=== PATIENT | female | born 1990 | race Caucasian/White ===

== ENCOUNTER 2016-09-26 16:31 | Inpatient (IN) ==
[2016-09-26] MEDS ORDERED: ONDANSETRON 4 MG/2 ML VIAL IV PRN (16:48)
[2016-09-26] MEDS ORDERED: BUTORPHANOL 2 MG/ML VIAL IV PRN (16:48)
[2016-09-26] MEDS: LACTATED RINGERS 1,000 ML IV SCH (16:49)
[2016-09-26 17:45] LABS: Basophils % 0.2 % (0.0-0.8); Eosinophils # 0.2 10*3/uL (0.0-0.87); Eosinophils % 1.9 % (0.00-10.9); Hematocrit 36.4 VOL% (35.7-47.0); Hemoglobin 12.3 GM/DL (12.0-16.0); Immature Granulocytes % 0.7 %; Immature Granulocytes Absolute 0.07 #; Lymphocytes % 18.9 % (21.3-54.2); Mean Corpuscular HGB Conc 33.8 GM/DL (32-36); Mean Corpuscular Hemoglobin 31 PG (27-34); Mean Corpuscular Volume 91.2 FL (87-102); Mean Platelet Volume 10.8 FL (9.6-12.0); Monocytes # 0.9 10*3/uL (0.11-0.8); Monocytes % 8.2 % (1.7-12.7); Neutrophils # 7.4 10*3/uL (1.4-7.4); Neutrophils % 70.1 % (38.7-73.9); Platelet Count 222 T/CUMM (130-400); Red Blood Count 3.99 MC/CUMM (3.8-5.5); Red Cell Distribution Width 12.8 % (9.3-17.3); White Blood Count 10.6 T/CUMM (4-12)
[2016-09-26] MEDS: OXYTOCIN/LR 20 UNIT/1,000 ML BAG IV SCH (18:43)
[2016-09-27] MEDS: MEPERIDINE 50 MG/1 ML VIAL IV PRN ×2 (09:13→11:05)
[2016-09-27] MEDS ORDERED: LIDOCAINE 1% 50 ML VIAL ONE ×2 (11:30→12:01)
[2016-09-27] MEDS ORDERED: miSOPROStol 200 MCG TABLET ONE (11:30)
[2016-09-27] MEDS: OXYTOCIN/LR 20 UNIT/1,000 ML BAG IV SCH (12:37)
[2016-09-27] MEDS ORDERED: oxyCODONE/ACETAMINOPHEN 5-325 MG TABLET ONE (16:51)
[2016-09-27] MEDS ORDERED: IBUPROFEN 800 MG TABLET ONE (16:51)
[2016-09-27] MEDS ORDERED: oxyCODONE/ACETAMINOPHEN 5-325 MG TABLET PO PRN (17:00)
[2016-09-27] MEDS: IBUPROFEN 800 MG TABLET PO PRN (17:00)
--- NOTE | 2016-09-27 18:48 | History and Physical Update ---
History and Physical Update - Dictation Physical: refer to scanned H&P - Physical Exam Mental Status: alert and oriented Heart: regular rate and rhythm Lung: clear to auscultation Abdomen: within normal limits Vitals: within normal limits History and Physical Changes: Pt presented to L&D with SROM at 1500 on 09/26/16. She wished attempt. Documented LTCS with first delivery. Pt aware of risks. I think it is reasonable that she attempt with her restriction of weight gain this to about 30 # as compared to 45 # weight gain with first baby.
[2016-09-27] MEDS: DOCUSATE SODIUM 100 MG CAPSULE PO SCH (20:45)
[2016-09-28] MEDS: IBUPROFEN 800 MG TABLET PO PRN ×2 (04:20→15:12)
[2016-09-28 05:36] LABS: Basophils % 0.2 % (0.0-0.8); Eosinophils # 0.2 10*3/uL (0.0-0.87); Eosinophils % 1.7 % (0.00-10.9); Hematocrit 31.4 VOL% (35.7-47.0); Hemoglobin 10.5 GM/DL (12.0-16.0); Immature Granulocytes % 0.7 %; Immature Granulocytes Absolute 0.07 #; Lymphocytes # 1.7 10*3/uL (1.4-4.0); Lymphocytes % 16.6 % (21.3-54.2); Mean Corpuscular HGB Conc 33.4 GM/DL (32-36); Mean Corpuscular Hemoglobin 30 PG (27-34); Mean Corpuscular Volume 90.5 FL (87-102); Mean Platelet Volume 11.1 FL (9.6-12.0); Monocytes # 0.9 10*3/uL (0.11-0.8); Monocytes % 8.2 % (1.7-12.7); Neutrophils # 7.6 10*3/uL (1.4-7.4); Neutrophils % 72.6 % (38.7-73.9); Platelet Count 181 T/CUMM (130-400); Red Blood Count 3.47 MC/CUMM (3.8-5.5); Red Cell Distribution Width 13.2 % (9.3-17.3); White Blood Count 10.5 T/CUMM (4-12)
--- NOTE | 2016-09-28 08:41 | OB/GYN Progress Note ---
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 Interval history: PPD#1 Doing well Exam BAG [employer] SEWER - Constitutional Vitals: Vital Signs Temp Pulse Resp BP Pulse Ox 09/28/16 07:26 97.7 F 75 20 111/64 97 09/28/16 04:20 97.5 F L 68 16 113/63 98 09/28/16 00:15 97.3 F L 65 16 95/53 96 09/27/16 20:05 97.2 F L 67 20 108/59 96 09/27/16 16:00 98.5 F 69 20 121/62 98 09/27/16 12:00 97.4 F L 90 20 95/48 09/27/16 10:00 99.4 F General appearance: normal weight, no acute distress - Head Head exam: Present: normal inspection, normocephalic - Eye Eye exam: Present: EOMI - Respiratory Respiratory exam: Present: clear to auscultation bilaterally - Cardiovascular Cardiovascular exam: Present: regular rate and rhythm - GI/Abdominal GI/Abdominal exam: Present: soft (fundus firm, nontender) - Extremities Exam Extremities exam: Present: normal inspection - Neurological Exam Neurological exam: Present: alert, oriented X3 - Psychiatric Psychiatric exam: Present: normal affect, normal mood - Skin Skin exam: Present: normal color, warm Results - Labs CBC & BMP: 09/28/16 04:58 Lab Results: I have reviewed the past 24 hour labs
[2016-09-28] MEDS: DOCUSATE SODIUM 100 MG CAPSULE PO SCH ×2 (09:30→20:05)
--- NOTE | 2016-09-28 12:23 | Pathology Report from [facility] ---
ACCESSION # : [id number] PATIENT NAME : Evelia Johnson ORDERING DR : MELISSA WILLSON CLINICAL HX: @ 37 wks gestation, SROM- POST-OP DX: Same SPECIMEN INFO: Placenta GROSS DESCRIPTION: Received fresh labeled "EVELIA JOHNSON" is a 559 gm placenta received in a few pieces measuring 16.0 x 17.5 x 3.0 cm collectively. The membranes are pink caal and translucent. The umbilical cord measures 39.0 cm, contains three vessels and is centrally inserted. The surface is blue carmen and circumarginate. The maternal surface displays no gross abnormalities upon sectioning. Sections submitted A- membranes and cord, B- and maternal surfaces. DIAGNOSIS FOR EVELIA JOHNSON: PLACENTA, MEMBRANES, UMBILICAL CORD: Focal placental infarction, mild intervillous blood. Tri-vessel umbilical cord. Membranes with focal chronic inflammation and attached blood. SERVICE DATE: 09/27/2016 REPORT DATE: 09/28/2016 PATHOLOGIST: Shannon Bhardwaj
[2016-09-28] MEDS: OXYTOCIN/LR 20 UNIT/1,000 ML BAG IV SCH ×2 (20:05→20:15)
[2016-09-28] MEDS: LACTATED RINGERS 1,000 ML IV SCH ×2 (20:43→20:44)
[2016-09-29] MEDS: IBUPROFEN 800 MG TABLET PO PRN ×2 (02:30→17:00)
[2016-09-29] MEDS: LACTATED RINGERS 1,000 ML IV SCH (06:19)
[2016-09-29] MEDS: DOCUSATE SODIUM 100 MG CAPSULE PO SCH ×2 (10:14→21:30)
[2016-09-30 07:17] VITALS: BP 106/55
--- NOTE | 2016-09-30 09:56 | OB/GYN Progress Note ---
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 Baby is having apneic episodes and evaluation is in progress for this. 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 [employer]IVER - Constitutional Vitals: Vital Signs Temp Pulse Resp BP Pulse Ox 09/30/16 07:17 97.9 F 67 20 106/55 99 09/30/16 04:00 97.8 F 73 20 114/69 99 09/30/16 02:00 18 09/29/16 23:52 97.6 F 66 18 104/64 99 09/29/16 20:00 97.8 F 75 20 114/68 99 09/29/16 16:00 98.2 F 65 20 131/55 100 09/29/16 12:00 97.2 F L 70 19 114/69 100 General appearance: normal weight, mild distress (with situation) - Head Head exam: Present: normal inspection, normocephalic - Eye Eye exam: Present: EOMI - Respiratory Respiratory exam: Present: clear to auscultation bilaterally - Cardiovascular Cardiovascular exam: Present: regular rate and rhythm - GI/Abdominal GI/Abdominal exam: Present: soft (fundus firm, nontender) - Extremities Exam Extremities exam: Present: normal inspection - Neurological Exam Neurological exam: Present: alert, oriented X3 - Psychiatric Psychiatric exam: Present: normal affect, normal mood - Skin Skin exam: Present: normal color, warm Results - Labs CBC & BMP: 09/28/16 04:58 Lab Results: I have reviewed the past 24 hour labs
[2016-09-30] MEDS: DOCUSATE SODIUM 100 MG CAPSULE PO SCH (09:57)
--- NOTE | 2016-09-30 09:58 | Discharge Summary ---
Hospital Course - Hospital Course Hospital Course: Pt admitted with SROM at 37 wks . Pt with hx of prev C/S and she wished to attempt with documented hx of LTCS. Slow Pitocin augmentation was done. Pt delivered easily on 09/27/16 without complications. Baby had several apneic episodes and was kept longer for evaluation. Pt is and we felt it best to keep the pt an extra day for benefits for her and her baby in this stressful situation. Diagnosis - Discharge Diagnosis (1) Vaginal after delivery Status: Acute Discharge Plan - Discharge Data Disposition: Disch To Home/Self Care Condition at Discharge: Stable Discharge Diet: regular diet Activity: other (pelvic rest x 6 wks) Hygiene: may shower Weight Bearing at Discharge: full weight bearing Driving: not for (1 wk) Contact your physician if you experience:: fever over 101, Difficulty voiding, Redness or swelling, Nausea/Vomiting, Shortness of breath, Bleeding, pain uncontrolled by pain medications - Discharge Medications New Ibuprofen Tab [Motrin Tab] 800 mg PO Q6H PRN #30 tablet PRN Reason: Pain oxyCODONE/ACETAMINOPHEN 5-325 [Percocet 5-325] 1 tablet PO Q4H PRN #20 tablet PRN Reason: Pain Moderate (4-7) No Action Vits #90/Iron Fum/FA [ Formula Tablet] 1 tablet PO DAILY - Follow Up or Referral Follow Up: Alina Salazar DO [Primary Care Provider] - (6 wks) - Forms/Instructions Exam - Constitutional Vitals: Period Temp Pulse Resp BP Sys/Esposito Pulse Ox Last 24 Hr 97.2 F-98.2 F 65-75 18-20 104-131/55-69 99-100 General appearance: normal weight, no acute distress - Head Head exam: Present: normal inspection, normocephalic - Eye Eye exam: Present: EOMI - Respiratory Respiratory exam: Present: clear to auscultation bilaterally - Cardiovascular Cardiovascular exam: Present: regular rate and rhythm - GI/Abdominal GI/Abdominal exam: Present: soft (fundus firm, nontender) - Extremities Exam Extremities exam: Present: normal inspection - Neurological Exam Neurological exam: Present: alert, oriented X3 - Psychiatric Psychiatric exam: Present: normal affect, normal mood - Skin Skin exam: Present: normal color, warm DS: Provider Date of admission: 09/26/16 16:31 Primary care physician: Alina Salazar DO Attending physician on admission: Alina Salazar DO Consults: 09/26/16 16:48 Consult to Anesthesiology [CONS] Routine Consulting Provider: Reason for Anesthesiology: Epidural Consult Comment: Epidural for pain managment Discharging clinician: Alina Salazar DO Expected date of discharge: 09/30/16
== END 2016-09-30 13:20 | disposition home or self-care (01) | DRG 775 ==
LOC: N.LDOUT 16:31 → EDSTATUS 16:31 → N.LD 16:31 → N.OB 09-27 16:07
PROVIDERS: ADMIT Obstetrics & Gynecology; ATTEND Obstetrics & Gynecology

== ENCOUNTER 2019-03-19 06:15 | Inpatient (IN) ==
[2019-03-19] MEDS ORDERED: BUTORPHANOL 2 MG/ML VIAL IV PRN (07:10)
[2019-03-19] MEDS ORDERED: ONDANSETRON 4 MG/2 ML VIAL IV PRN (07:10)
[2019-03-19] MEDS ORDERED: MEPERIDINE 50 MG/1 ML VIAL IV PRN (07:10)
[2019-03-19 07:26] LABS: Basophils % 0.3 % (0.0-0.8); Eosinophils # 0.2 10*3/uL (0.0-0.87); Eosinophils % 2.3 % (0.00-10.9); Hematocrit 37.5 VOL% (35.7-47.0); Hemoglobin 12.5 GM/DL (12.0-16.0); Immature Granulocytes % 0.6 %; Immature Granulocytes Absolute 0.05 #; Lymphocytes # 1.6 10*3/uL (1.4-4.0); Lymphocytes % 18.7 % (21.3-54.2); Mean Corpuscular HGB Conc 33.3 GM/DL (32-36); Mean Corpuscular Volume 89.9 FL (87-102); Mean Platelet Volume 11.6 FL (9.6-12.0); Monocytes % 8.3 % (1.7-12.7); Neutrophils % 69.8 % (38.7-73.9); Platelet Count 224 T/CUMM (130-400); Red Blood Count 4.17 MC/CUMM (3.8-5.5); White Blood Count 8.7 T/CUMM (4-12)
[2019-03-19] MEDS ORDERED: LACTATED RINGERS 1,000 ML IV SCH (07:30)
[2019-03-19 07:55] LABS: Alanine Aminotransferase 29 U/L (13-56); Albumin 2.5 G/DL (3.4-5.0); Alkaline Phosphatase 176 U/L (45-117); Aspartate Amino Transferase 22 U/L (0-37); Bilirubin,Total < 0.39 MG/DL (0.2-1.0); Blood Urea Nitrogen 8 MG/DL (7-18); Calcium 8.4 MG/DL (8.5-10.1); Glucose 67 MG/DL (74-106); Osmolality,Calculated 272.5 MOS/KG (273-304)
[2019-03-19] MEDS: OXYTOCIN/LR 20 UNIT/1,000 ML BAG IV SCH ×2 (08:34→17:58)
[2019-03-19] MEDS ORDERED: miSOPROStol 200 MCG TABLET ONE (13:00)
[2019-03-19] MEDS ORDERED: LIDOCAINE 1% 50 ML VIAL ONE (13:01)
[2019-03-19] MEDS ORDERED: METHYLERGONOVINE 0.2 MG/1 ML AMP ONE (13:01)
[2019-03-19] MEDS ORDERED: CARBOPROST TROMETHAMINE 250 MCG/ML AMP IM ONE (13:01)
[2019-03-19] MEDS ORDERED: CITRIC ACID/SODIUM CITRATE 30 ML UDCUP PO ONE (13:26)
[2019-03-19] MEDS ORDERED: ceFAZolin 2,000 MG in PREMIX 1 EACH IV ONE (13:26)
[2019-03-19] MEDS ORDERED: FAMOTIDINE 20 MG/2 ML VIAL IV ONE (13:26)
[2019-03-19] MEDS ORDERED: PHENYLEPHRINE 1 MG/10 ML SYRINGE IV ONE (16:01)
[2019-03-19] MEDS ORDERED: MORPHINE 10 MG/10 ML VIAL ONE (16:01)
[2019-03-19] MEDS ORDERED: ePHEDrine 50 MG/ML AMP ONE (16:01)
[2019-03-19 16:07] LABS: Cord Arterial Blood HCO3 23.9 MMOL/L
[2019-03-19 16:09] LABS: Cord Venous Blood HCO3 21.1 MMOL/L; Cord Venous Blood PCO2 37.6 MMHG; Cord Venous Blood PO2 26.5 MMHG
[2019-03-19 17:44] LABS: Apearance,Urine CLEAR (Clear); Bilirubin,Urine Negative (Negative); Blood, Urine Negative (Negative); Glucose,Urine (UA) Negative (Negative); Ketones,Urine 20 mg/dL (Negative); Mucus,Urine Occasional /LPF (Occasional); Nitrite,Urine Negative (Negative); Protein,Urine Negative; RBC,Urine <1 /HPF (0-4); Squamous Epithelial Cell,Urine Occasional /HPF (0-10); Urine Color Yellow (Yellow); Urine Specific Gravity 1.017 (1.001-1.035); Urine Urobilinogen < 2.0 EU/DL (0.2-1.0); WBC,Urine 1 /HPF (0-6)
[2019-03-20] MEDS: ceFAZolin 1,000 MG in SYRINGE 1 EACH IV SCH ×2 (00:03→07:05)
[2019-03-20 04:50] LABS: Basophils % 0.2 % (0.0-0.8); Eosinophils # 0.1 10*3/uL (0.0-0.87); Hemoglobin 9.6 GM/DL (12.0-16.0); Immature Granulocytes % 0.6 %; Immature Granulocytes Absolute 0.07 #; Lymphocytes # 1.3 10*3/uL (1.4-4.0); Lymphocytes % 10.5 % (21.3-54.2); Mean Corpuscular HGB Conc 33.1 GM/DL (32-36); Mean Corpuscular Volume 91.8 FL (87-102); Mean Platelet Volume 11.4 FL (9.6-12.0); Monocytes % 7.1 % (1.7-12.7); Neutrophils % 80.6 % (38.7-73.9); Platelet Count 169 T/CUMM (130-400); Red Blood Count 3.16 MC/CUMM (3.8-5.5); Red Cell Distribution Width 13.1 % (9.3-17.3)
[2019-03-20] MEDS: oxyCODONE/ACETAMINOPHEN 5-325 MG TABLET PO PRN ×4 (04:53→23:56)
[2019-03-20] MEDS ORDERED: oxyCODONE/ACETAMINOPHEN 5-325 MG TABLET PO PRN (05:36)
[2019-03-20] MEDS: IBUPROFEN 800 MG TABLET PO PRN ×2 (08:23→23:56)
[2019-03-20] MEDS ORDERED: SIMETHICONE CHEW 80 MG TABLET PO PRN (18:16)
[2019-03-20] MEDS ORDERED: MAGNESIUM HYDROXIDE SUSP 30 ML UDCUP PO PRN (20:00)
[2019-03-20] MEDS ORDERED: DOCUSATE SODIUM 100 MG CAPSULE PO SCH (21:00)
[2019-03-21 07:32] VITALS: BP 102/62
[2019-03-21] MEDS: oxyCODONE/ACETAMINOPHEN 5-325 MG TABLET PO PRN (11:09)
== END 2019-03-21 12:35 | disposition home or self-care (01) | DRG 785 ==
LOC: N.LDOUT 06:15 → N.LD 06:19 → N.OB 18:22
PROVIDERS: ADMIT Obstetrics & Gynecology; ATTEND Obstetrics & Gynecology